=== PATIENT | female | born 1985 | race African-American/Black ===

== ENCOUNTER 2019-02-11 13:54 | Emergency (ER) | payer MEDICAID ==
[~2019-02-11] VITALS: Ht 162.6 cm; Wt 90.0 kg
[2019-02-11] MEDS ORDERED: IBUPROFEN 400MG TABLET PO ONE (17:15)
[2019-02-11 17:38] VITALS: BP 129/77
== END 2019-02-11 17:38 | disposition home or self-care (01) ==
LOC: ER 16:10
DX: S00.83XA Contusion of other part of head, initial encounter (principal); S43.402A Unspecified sprain of left shoulder joint, initial encounter; M25.561 Pain in right knee; J32.3 Chronic sphenoidal sinusitis; K21.9 Gastro-esophageal reflux disease without esophagitis; F17.210 Nicotine dependence, cigarettes, uncomplicated; F12.10 Cannabis abuse, uncomplicated; Y04.0XXA Assault by unarmed brawl or fight, initial encounter; Y93.89 Activity, other specified; Y92.512 Supermarket, store or market as the place of occurrence of the external cause
CPT/HCPCS: 70486; 73030; 81025; 99284